=== PATIENT | male | born 1955 | race Caucasian/White ===

== ENCOUNTER 2016-11-12 12:41 | Emergency (ER) | payer OTHER ==
[2016-11-12 12:48] VITALS: BP 144/76; PULSE 66; RESP 18; TEMP 98.1; O2SAT 94
[2016-11-12] MEDS ORDERED: TDAP ADULT 0.5 ML INJ (BOOSTRIX) IM ONE (13:05)
--- NOTE | 2016-11-12 13:09 | EDPHY ---
H & P Time Seen by Provider: 11/12/16 12:53 HPI/ROS: This patient fell while hiking in [place] 14 days ago sustained a laceration to the right elbow without bony injury sutured emergency department in [place]. Today his removed the sutures and they are concerned about inadequate wound healing a portion of the wound prompting the visit for evaluation. He reports minimal discomfort at the site. He states there is a small amount of clear drainage. Reports they have been putting ointment on the wound daily as wound care at home. He did not have a tetanus immunization while in the emergency department [place]. Upon reflection, he realizes that likely been 7 years or more since his last immunization he requests a tetanus booster. ROS: No fevers or other constitutional symptoms Musculoskeletal: No bony pain to the affected area Dermatologic: No redness to the skin. Neuro: No numbness or tingling 5 point ROS is otherwise negative Smoking Status: Never smoked Physical Exam: Physical Exam Vital signs are normal. General: No acute distress Cardiac: Brisk capillary refill is intact throughout. Pulses are 2+ and symmetric in the affected extremity. Skin: No rash or pallor. There is a 5 cm wound to the right elbow with well- approximated tissue with no erythema fluctuance warmth to touch. The portion of the wound toward the radial aspect of the elbow-2 cm or so reveals intact deepest layers of skin but more superficial layers never healed together leaving "furrow" appearance to the skin. No bleeding. Neuro: Alert with no sensorimotor deficits in the affected extremity. Constitutional: Initial Vital Signs Temperature (C) 36.7 C 11/12/16 12:45 Heart Rate 66 11/12/16 12:45 Respiratory Rate 18 11/12/16 12:45 Blood Pressure 144/76 H 11/12/16 12:45 O2 Sat (%) 94 11/12/16 12:45 Allergies/Adverse Reactions: gabapentin [From Neurontin] Allergy (Verified 11/12/16 12:48) Home Medications: Medication Instructions Recorded Omeprazole 11/12/16 MDM/Departure - MDM Medications Given: Discontinued Medications Diphtheria/Tetanus/Acell Pertussis (Boostrix) 0.5 ml IM .ONCE ONE Stop: 11/12/16 13:06 Last Admin: 11/12/16 13:16 Dose: 0.5 ml ED Course/Re-evaluation: Our tech cleaned the patient's wound, applied benzoin and Steri-Strips as per my directions. I counseled patient regarding wound care He is given tetanus immunization booster Discussion: Patient with incomplete wound healing likely due to too much ointment applied to the wound. Counseled him regarding this. No evidence of wound infection or other complications currently. - Depart Disposition: Home, Routine, Self-Care Clinical Impression: Elbow wound Qualifiers: Encounter type: sequela Laterality: right Qualified Code(s): S51.001S - Unspecified open wound of right elbow, sequela Condition: Good Instructions: Steristrips (ED) Additional Instructions: Diagnosis: Elbow wound Plan: Clean the wound daily gently with soapy warm water. Avoid scrubbing the Steri-Strips. Steri-Strips typically come off and 5-10 days. Avoid any ointment on the wound. Return if he developed significant bleeding, fever, redness, increased pain or other concerns Referrals: Juliano Gilbert MD [Primary Care Provider] - As per Instructions
== END 2016-11-12 13:20 | disposition home or self-care (01) ==
LOC: CED 12:41
PROC: 3E0234Z Introduction of Serum, Toxoid and Vaccine into Muscle, Percutaneous Approach (ICD-10-PCS; principal; 2016-11-12)
DX: S51.001A Unspecified open wound of right elbow, initial encounter (principal); Z23 Encounter for immunization; W18.39XA Other fall on same level, initial encounter; Y99.8 Other external cause status; Y93.01 Activity, walking, marching and hiking